=== PATIENT | female | born 1985 | race Caucasian/White ===

== ENCOUNTER 2019-10-26 11:55 | Emergency (ER) | payer OTHER ==
[~2019-10-26] VITALS: Ht 152.4 cm; Wt 54.4 kg
[2019-10-26 12:21] LABS: ACETEST (KETONE CONFIRMATORY) Large (Negative); URINE BILIRUBIN 1+ (Negative); URINE BLOOD NEGATIVE (Negative); URINE CLARITY CLEAR; URINE COLOR YELLOW; URINE GLUCOSE-RANDOM NEGATIVE (Negative); URINE KETONES 3+ (Negative); URINE LEUKOCYTES-REFLEX NEGATIVE (Negative); URINE NITRITE-REFLEX NEGATIVE (Negative); URINE PROTEIN NEGATIVE (Negative); URINE SPECIFIC GRAVITY 1.025 (1.005-1.030); URINE UROBILINOGEN 0.2 E.U./dl (0.2-1.0)
[2019-10-26 12:22] LABS: ICTOTEST (BILI CONFIRMATORY) Negative (Negative)
[2019-10-26 12:28] LABS: HEMATOCRIT 43.5 % (37.0-47.0); HEMOGLOBIN 15.1 gm/dL (12.0-15.0); MCH 31.4 pg (26.0-34.0); MCHC 34.6 g/dL (28.0-37.0); MCV 90.9 fL (80.0-100.0); MPV 8.1 fl. (7.2-11.1); NUCLEATED RBCS 0 /100WBC; PLATELET COUNT* 216 thou/uL (150-400); RBC 4.79 mil/uL (4.20-5.00); WBC 6.2 thou/uL (4.0-11.0)
[2019-10-26 12:36] LABS: CALCIUM 8.5 mg/dL (8.5-10.1); CREATININE 0.9 mg/dL (0.6-1.3); POTASSIUM 3.6 mmol/L (3.5-5.1)
[2019-10-26 12:41] LABS: ALBUMIN 4.2 g/dL (3.4-5.0); TOTAL BILIRUBIN 0.8 mg/dL (<0.1-1.0); TOTAL PROTEIN 7.9 g/dL (6.4-8.2)
[2019-10-26 13:00] LABS: ABSOLUTE EOSINOPHILS 0.1 thou/uL (0.0-0.7); ABSOLUTE MONOCYTES 0.2 thou/uL (0.0-1.2); PLATELET ESTIMATE ADEQUATE
[2019-10-26] MEDS ORDERED: ZOFRAN ODT4 MG PO (13:53)
[2019-10-26] MEDS ORDERED: BENTYL 20 MG TA20 M1 PO (13:53)
[2019-10-26 14:08] VITALS: BP 98/55
== END 2019-10-26 14:08 | disposition home or self-care (01) ==
LOC: M.ERS 11:55
PROVIDERS: Nurse Practitioner Family
DX: K52.9 Noninfective gastroenteritis and colitis, unspecified (principal); Z98.890 Other specified postprocedural states; Z88.2 Allergy status to sulfonamides

== ENCOUNTER 2020-05-03 23:37 | Emergency (ER) | payer OTHER ==
[~2020-05-03] VITALS: Ht 152.4 cm; Wt 56.7 kg
[~2020-05-03 23:37] MED LIST: BENTYL 20 MG TA20 M1 PO; ZOFRAN ODT4 MG PO
[2020-05-04] MEDS ORDERED: NORCO 5-325 TA1 EAC2 PO (00:15)
[2020-05-04] MEDS ORDERED: KEFLEX500 M1 PO (00:15)
[2020-05-04 00:36] VITALS: BP 147/124
== END 2020-05-04 00:37 | disposition home or self-care (01) ==
LOC: M.ERS 23:37
DX: S61.211A Laceration without foreign body of left index finger without damage to nail, initial encounter (principal); Z98.890 Other specified postprocedural states; Z88.2 Allergy status to sulfonamides; W26.8XXA Contact with other sharp object(s), not elsewhere classified, initial encounter; Y93.89 Activity, other specified; Y92.89 Other specified places as the place of occurrence of the external cause; Y99.8 Other external cause status